=== PATIENT | male | born 1995 | race Hispanic/Latino ===

== ENCOUNTER → 2023-09-13 | Emergency (ER) | payer SELFPAY ==
[~2023-09-13] MED LIST: FAMOTIDINE 20 MG/2 ML VIAL IV ONE; HALOPERIDOL LACT 5 MG/ML INJ ONE; KETOROLAC 30 MG/ML INJ ONE; MORPHINE 4 MG/ML SYR ONE; NA CHLORIDE 0.9% 1,000 ML ONE; NA CHLORIDE 0.9% 50 ML ONE
[2023-09-13 13:48] LABS: Lymphocytes % 8.5 % (15.3-44.8); MCV 85.5 fL (80-100); MPV 8.4 fL (7.6-11.3); Platelets 283 thou/uL (152-406); RBC Red Blood Cell Count 5.14 M/uL (4.33-5.43); Specific Gravity < 1.005 (1.005-1.030); Urine Bacteria None Seen /HPF (<20); Urine Bilirubin NEGATIVE (Negative); Urine Blood Negative (Negative); Urine Clarity Clear (Clear); Urine Color Colorless (Yellow); Urine Glucose NEGATIVE (Negative); Urine Protein NEGATIVE (Negative); Urine RBC <5 /HPF (None Seen); Urine Urobilinogen Normal (Normal)
[2023-09-13 14:02] LABS: Albumin 3.7 g/dL (3.4-5.0); Bilirubin Total 0.5 mg/dL (0.2-1.0); Potassium 3.8 mEq/L (3.5-5.1); Protein, Total 8.1 g/dL (6.4-8.2)
--- NOTE | 2023-09-13 14:54 | RAD REPORT ---
EXAM DESCRIPTION: CT - Abdomen Pelvis W Contrast - 09/13/2023 1:57 pm CLINICAL HISTORY: ABD PAIN COMPARISON: No comparisons TECHNIQUE: Thin cut axial CT imaging of the abdomen and pelvis was performed following intravenous a dministration of 100 mL Isovue 300. Multiplanar reformats were generated and reviewed. All CT scans are performed using dose optimization technique as appropriate and may include automated exposure control or mA/KV adjustment according to patient size. FINDINGS: No suspicious findings in the lung bases. The liver, spleen, adrenal glands, and pancreas show no suspicious findings. Gallbladder and biliary tree are also without suspicious finding. Symmetric renal function is seen with no hydronephrosis or suspicious renal mass. No dilated bowel loops or bowel wall thickening. No free air, free fluid or inflammatory stranding. N o hernia, mass or bulky lymphadenopathy. The urinary bladder is without significant finding. No suspicious bony findings. IMPRESSION: No acute intra-abdominal process.
--- NOTE | 2023-09-13 15:06 | ER ---
Nurse's Notes [facility] Name: Bebeto Wyman Age: 28 yrs Sex: Male : 1995 Arrival Date: 09/13/2023 Time: 11:01 Bed 4 Private MD: Diagnosis: Vomiting Presentation: 09/13 11:22 Chief complaint: Patient states: 1. Sudden onset of N/V. weakness, and numbness to ll1 entire body 30 min MAKE UP GIRL. States he feels very weird and near syncope. 2. L thigh pain off/on for 1 month. Coronavirus screen: Client denies travel out of the [place] in the last 14 days. fatigue, nausea, vomiting. Client presents with at least one sign or symptom that may indicate coronavirus-19. Standard/surgical mask placed on the client. Ebola Screen: Patient denies travel to an Ebola-affected area in the 21 days before illness onset. No acute neurological deficit is noted. Initial Sepsis Screen: Does the patient meet any 2 criteria? No. Patient's initial sepsis screen is negative. Does the patient have a suspected source of infection? No. Patient's initial sepsis screen is negative. Risk Assessment: Do you want to hurt yourself or someone else? Patient reports no desire to harm self or others. Onset of symptoms was September 13, 2023. 11:22 Method Of Arrival: Ambulatory 1 11:22 Acuity: GUNNAR 3 ll1 Triage Assessment: 11:30 General: Appears uncomfortable, ill, Behavior is cooperative, appropriate for age, ll1 anxious. Pain: Denies pain. Neuro: Reports dizziness, numbness a syncopal episode. GI: Reports nausea, vomiting. Stroke Activation: Symptom onset > 6 hours Physician: Stroke Attending; Name: ; Notified At: ; Arrived At: Physician: Chief Stroke Resident; Name: ; Notified At: ; Arrived At: Physician: Stroke Resident; Name: ; Notified At: ; Arrived At: Physician: ED Attending; Name: ; Notified At: ; Arrived At: Physician: ED Resident; Name: ; Notified At: ; Arrived At: Historical: - Allergies: 11:27 No Known Allergies; ll1 - PMHx: 11:30 intussusception; ll1 - PSHx: 11:27 None; ll1 - Immunization history:: Adult Immunizations up to date. - Social history:: Smoking status: Patient denies any tobacco usage or history of. Screenin:44 [facility] ED Fall Risk Assessment (Adult) History of falling in the last 3 months, kc6 including since admission No falls in past 3 months (0 pts) Confusion or Disorientation No (0 pts) Intoxicated or Sedated No (0 pts) Impaired Gait No (0 pts) Mobility Assist Device Used No (0 pt) Altered Elimination No (0 pt) Score/Fall Risk Level 0 - 2 = Low Risk. Abuse screen: Denies threats or abuse. Denies injuries from another. Nutritional screening: No deficits noted. Tuberculosis screening: No symptoms or risk factors identified. Assessment: 12:44 Reassessment: No changes from previously documented assessment. Patient and/or family ap3 updated on plan of care and expected duration. Pain level reassessed. 13:44 Reassessment: Patient appears in no apparent distress at this time. No changes from kc6 previously documented assessment. Patient and/or family updated on plan of care and expected duration. Pain level reassessed. Patient is alert, oriented x 3, equal unlabored respirations, skin warm/dry/pink. 14:44 Reassessment: Patient appears in no apparent distress at this time. No changes from kc6 previously documented assessment. Patient and/or family updated on plan of care and expected duration. Pain level reassessed. Patient is alert, oriented x 3, equal unlabored respirations, skin warm/dry/pink. Vital Signs: 11:26 BP 160 / 103; Pulse 96; Resp 20; Temp 98.2; Pulse Ox 100% ; Weight 108.86 kg; Height 5 ll1 ft. 7 in. ; Pain 0/10; 15:03 BP 106 / 75; Pulse 46; Resp 17 S; Pulse Ox 96% on R/A; kc6 11:26 Body Mass Index 37.59 (108.86 kg, 170.18 cm) ll1 11:26 Pain Scale: Adult ll1 ED Course: 11:02 Patient arrived in ED. rg4 11:22 Arm band placed on. ll1 11:23 Triage completed. ll1 11:28 Romeo Mares MD is Attending Physician. ec2 12:44 Patient placed in an exam room, on a stretcher. ap3 12:44 Patient has correct armband on for positive identification. Bed in low position. Call kc6 light in reach. Side rails up X 1. Adult w/ patient. Client placed on continuous cardiac and pulse oximetry monitoring. NIBP monitoring applied. 12:48 Laure Barrientos, RN is Primary Nurse. ph 13:34 Missed attempt(s): 20 gauge in left antecubital area. Bleeding controlled, band aid ph applied, catheter tip intact. 13:39 Inserted saline lock: 20 gauge in right antecubital area, using aseptic technique. kc6 Blood collected. Patient maintains SpO2 saturation greater than 95% on room air. 13:58 CT Abd/Pelvis - IV Contrast Only In Process Unspecified. EDMS 15:19 No provider procedures requiring assistance completed. IV discontinued, intact, kc6 bleeding controlled, No redness/swelling at site. Pressure dressing applied. Administered Medications: 13:39 Drug: Haloperidol IVP 2.5 mg/50 mL 5 mg IVP once; Place patient on a youth nutritional monitor kc6 Route: IVP; Site: right antecubital; 15:04 Follow up: Response: No adverse reaction; Nausea is decreased; Vomiting decreased kc6 13:39 Drug: NS 0.9% IV 1000 ml IV at 1 bolus Per protocol; 1000 mL bolus Route: IV; Rate: 1 kc6 bolus; Site: right antecubital; 15:04 Follow up: Response: No adverse reaction; IV Status: Completed infusion; IV Intake: kc6 1000ml 13:39 Drug: Famotidine IVP 20 mg IVP once; dilute with 10 mL 0.9% NaCl; give over 2 minutes kc6 Route: IVP; Site: right antecubital; 15:04 Follow up: Response: No adverse reaction kc6 13:39 Drug: TORadol - Ketorolac IVP 15 mg IVP once Route: IVP; Site: right antecubital; kc6 15:04 Follow up: Response: No adverse reaction; Pain is decreased kc6 15:04 Not Given (Patient Refused): morphineor iv 4 mg IVP once over 4 mins kc6 Medication: 15:19 VIS not applicable for this client. kc6 Intake: 15:04 IV: 1000ml; Total: 1000ml. kc6 Outcome: 15:05 Discharge ordered by . ec2 15:19 Discharged to home ambulatory, with significant other, kc6 15:19 Condition: improved 15:19 Discharge instructions given to patient, Instructed on discharge instructions, follow up and referral plans. medication usage, Demonstrated understanding of instructions, follow-up care, medications, Prescriptions given X 1, 15:19 Patient left the ED. kc6 Signatures: Dispatcher [employer] Laure Osman RN RN ramon Xiao, Chanelle rg4 Nay Blil RN RN ap3 Omeag Mclean RN RN ll1 Genna Og RN RN kc6 Romeo Mares MD MD ec2 Corrections: (The following items were deleted from the chart) 11:22 Chief complaint: Patient states: Sudden onset of N/V. weakness, and numbness 30 ll1 min MAKE UP GIRL. ll1 11:32 11: PMHx: None; ll1 ll1 11:33 11:22 Chief complaint: Patient states: Sudden onset of N/V. weakness, and numbness to ll1 entire body 30 min MAKE UP GIRL. States he feels very weird and near syncope. ll1
--- NOTE | 2023-09-13 15:07 | EDPHYS ---
Physician Documentation [facility] Name: Bebeto Wyman Age: 28 yrs Sex: Male : 1995 Arrival Date: 09/13/2023 Time: 11:01 Bed 4 Private MD: ED Physician Romeo Mares HPI: 09/13 11:35 This 28 yrs old Male presents to ER via Ambulatory with complaints of ec2 Weakness, Numbness, Vomiting. 11:35 Patient arrives today for evaluation of nausea and vomiting with associated whole body ec2 numbness. Patient reports that he start experiencing symptoms approximately 1 hour ago. Patient reports that he is unable to keep anything down. He reports he is having nausea and vomiting. Patient reports no significant pain. Patient reports no difficulty breathing, no cough and cold symptoms, no sick contacts. Patient also reports that he has some nondescript leg pain is an ongoing for 1 month.. Historical: - Allergies: 11:27 No Known Allergies; ll1 - PMHx: 11:30 intussusception; ll1 - PSHx: 11:27 None; ll1 - Immunization history:: Adult Immunizations up to date. - Social history:: Smoking status: Patient denies any tobacco usage or history of. ROS: 11:35 Constitutional: as per hpi ec2 Exam: 11:35 Constitutional: GEN: NAD Head: atraumatic Eyes: EOMI Ears: External ears are ec2 normal. CV: regular rate LUNGS: no respiratory distress ABD: non-distended, soft, nontender, not guarding, not rigid SKIN: no evidence of rashes MSK: no evidence of trauma, bilateral lower extremities without evidence of trauma or swelling or erythema NEURO: moves all extremities equally Vital Signs: 11:26 BP 160 / 103; Pulse 96; Resp 20; Temp 98.2; Pulse Ox 100% ; Weight 108.86 kg; Height 5 ll1 ft. 7 in. ; Pain 0/10; 15:03 BP 106 / 75; Pulse 46; Resp 17 S; Pulse Ox 96% on R/A; kc6 11:26 Body Mass Index 37.59 (108.86 kg, 170.18 cm) ll1 11:26 Pain Scale: Adult ll1 MDM: 11:28 Patient medically screened. ec2 11:35 Data reviewed: vital signs. ED course: Patient arrives today due to concern for nausea ec2 and vomiting. Examination remarkable for well-appearing nontoxic individual is otherwise in no acute distress with a relatively reassuring abdominal examination. Will obtain lab work, CT imaging, viral swabs, treat pain symptoms and reassess the patient. Currently considering gastroenteritis, low suspicion for intra-abdominal infection or abscess.. 14:46 ED course: CBC shows slight leukocytosis at 12.1. Metabolic profile with appropriate ec2 electrolytes, diminished renal function with a GFR of 84, urine is noninfectious appearing. Lipase within normal ranges. Patient does meet SIRS criteria with a white count as well as the documented heart rate, however I have no definitive source of infection to warrant antibiotics at this time and accordingly will defer antimicrobial management. . 14:56 ED course: CT scan shows no acute intra-abdominal process. . ec2 15:04 ED course: On reassessment patient is well-appearing and in no acute distress, patient ec2 with marked improvement in his symptoms, denies any active symptoms, no significant medical problems, ultimately suspect possible gastroenteritis, low suspicion for intra-abdominal infection given reassuring imaging, will suspicion for ACS given the patient's otherwise lack of medical problems. Will discharge home, return precautions given.. 12 11:35 Order name: CBC with Diff ec2 09/13 11:35 Order name: CMP; Complete Time: 14:45 ec2 09/13 11:35 Order name: Lipase; Complete Time: 14:45 ec2 09/13 11:35 Order name: UAM; Complete Time: 14:45 ec2 09/13 11:35 Order name: CT Abd/Pelvis - IV Contrast Only; Complete Time: 14:56 ec2 09/13 11:35 Order name: IV Saline Lock; Complete Time: 13:39 ec2 09/13 11:35 Order name: Labs collected and sent; Complete Time: 13:39 ec2 Administered Medications: 13:39 Drug: Haloperidol IVP 2.5 mg/50 mL 5 mg IVP once; Place patient on a residential monitor kc6 Route: IVP; Site: right antecubital; 15:04 Follow up: Response: No adverse reaction; Nausea is decreased; Vomiting decreased kc6 13:39 Drug: NS 0.9% IV 1000 ml IV at 1 bolus Per protocol; 1000 mL bolus Route: IV; Rate: 1 kc6 bolus; Site: right antecubital; 15:04 Follow up: Response: No adverse reaction; IV Status: Completed infusion; IV Intake: kc6 1000ml 13:39 Drug: Famotidine IVP 20 mg IVP once; dilute with 10 mL 0.9% NaCl; give over 2 minutes kc6 Route: IVP; Site: right antecubital; 15:04 Follow up: Response: No adverse reaction kc6 13:39 Drug: TORadol - Ketorolac IVP 15 mg IVP once Route: IVP; Site: right antecubital; kc6 15:04 Follow up: Response: No adverse reaction; Pain is decreased kc6 15:04 Not Given (Patient Refused): morphineor iv 4 mg IVP once over 4 mins kc6 Disposition Summary: 09/13/23 15:05 Discharge Ordered Notes: Location: Home ec2 Condition: Stable ec2 Diagnosis - Vomiting ec2 Followup: ec2 - With: Private Physician - When: - Reason: Recheck today's complaints Discharge Instructions: - Discharge Summary Sheet ec2 - Viral Gastroenteritis, Adult ec2 Forms: - Medication Reconciliation Form ec2 - Thank You Letter ec2 - Antibiotic Education ec2 - Prescription Opioid Use ec2 - Patient Portal Instructions ec2 - Leadership Thank You Letter ec2 Prescriptions: - Compazine 10 mg Oral Tablet - take 1 tablet ORAL route every 8 hours As needed; 20 tablet; Refills: 0, ec2 Product Selection Permitted Signatures: Dispatcher [employer] Omega Gomes RN RN ll1 Genna Og RN RN kc6 Romeo Mares MD MD ec2 Corrections: (The following items were deleted from the chart) 11:32 11:27 PMHx: None; ll1 ll1 15:04 11:35 Patient arrives today for evaluation of nausea and vomiting with associated whole ec2 body numbness. Patient reports that he start experiencing symptoms approximately 1 hour ago. Patient reports that he is unable to keep anything down. Patient reports no significant pain. Patient reports no difficulty breathing, no cough and cold symptoms, no sick contacts. Patient also reports that he has some nondescript leg pain is an ongoing for 1 month.. ec2
[2023-09-13 15:20] LABS: Blood Morphology Comment NOT SEEN (NOT SEEN); Platelet Estimate ADEQ; White Blood Cell Scan OK (OK)
[2023-09-13 17:05] VITALS: TEMP 98.2
[2023-09-13 17:18] VITALS: BP 106/75; O2SAT 96
== END ==
LOC: ER 11:01
DX: R11.10 Vomiting, unspecified (principal); R20.0 Anesthesia of skin
CPT/HCPCS: 36415; 74177; 80053; 81001; 83690; 85025; 96361; 96374; 96375; 99285; J1630; J7030; Q9967

== ENCOUNTER 2024-10-14 19:34 | Emergency (ER) | payer SELFPAY ==
--- OUTSIDE RECORDS SUMMARY | 2024-10-14 19:38 | XMS REPORT | Continuity of Care Document ---
Author Name Unknown Address [address] [facility] [address] [facility] [place] [address] [facility] [address] [facility] [address] [facility] [place] [address] Care Team Providers Care Dowel Pin Man Name Role Phone Pcp, Patient Does Not Have A Primary Care Physic kaern TESSIE FOX Attending Clinician Unavailable TESSIE FOX Attending Clinician Unavailable Tessie Fox MD Attending Clinician AYDEN FINLEY Attending Clinician Unavailable AYDEN FINLEY Attending Clinician Unavailable OTILIO WRIGHT Attending Clinician UnaGAYLE aRm Attending Clinician Unavailable BE FUENTES Attending Clinician Unavailable Alexander Mcwilliams Attending Clinician Alexander CARROLL Attending Clinician Unavailable GC_CPC_Prashant Attending Clinician Unavail able ROLO CHRISTINA Attending Clinician Unavailable GAYLE LUIS Admitting Clinician Unavailable Alexander CARROLL Admitting Clinician Unavailable BRANDANCPC_WalkInSchedamy Admitting Clinician Unavail able Payers Payer Name Policy Type Policy Number Effective Date Expirati on Date Source Problems Condition Name Condition Details Condition Category Status Onset Date Resolution Date Last Treatment Date Treating Clinician Comments Source Obesity (BMI 30-39.9) Obesity (BMI 30-39.9) Disease Active 03-15 00:00: 00 [facility] Allergies, Adverse Reactions, Alerts Allergy Name Allergy Type Status Severity Reaction(s) Onset Date Inactive Date Treating Clinician Comments Source NO KNOWN ALLERGIE S Drug Class Active [facility] Social History Social Habit Start Date Stop Date Quantity Comments [facility] 1995 [facility] 1995 00:00:00 [facility] Smoking Status Start Date Stop Date Source Tobacco smoking consumption unknown [facility] Former Smoker [facility] Medications Ordered Medication Name Filled Medication Name Start Date Stop Date Current Medication? Ordering Clinician Indication Dosage Frequency Signature (SIG) Comments Components Source ondansetron (ZOFRAN (PF)) injection 4 mg 2023-09 03:15: 00 07-20 02:41 :00 No 4mg 4 mg, Slow IV Push, ONCE, 1 dose, On 07/19/24 at 2215, HERRERA [facility] diphenhydrA MINE:lidoca ine 2% viscous:maa lox 1:1:1 (FIRST-MOUT HWASH BLM) oral suspension 15 mL 2023-09 02:15: 00 07-20 02:41 :00 No 15mL 15 mL, Oral, ONCE, 1 dose, On 07/19/24 at 2115, HERRERA [facility] sucralfate 1 gram tablet 2023-09 00:00: 00 Yes [id number] 1g Take 1 tablet by mouth before meals and at bedtime. [facility] pantoprazol e 40 mg EC tablet 2023-09 00:00: 00 Yes [id number] 40mg Take 1 tablet by mouth in the morning. [facility] ondansetron 4 mg disintegrat ing tablet 2023-09 00:00: 00 Yes [id number] 4mg Take 1 tablet by mouth every 4 (four) hours as needed for Nausea and Vomiting (N/V). [facility] NaCl 0.9% (NS) bolus infusion 1,000 mL 10-24 23:45: 00 10-25 00:26 :00 No 1000mL at 999 mL/hr, 1,000 mL, IV Infusion, ONCE, 1 dose, On 10/24/23 at 1745, STAT [facility] diphenhydrA MINE (BENADRYL) injection 25 mg 10-24 23:45: 00 10-24 22:51 :00 No 25mg 25 mg, Slow IV Push, ONCE, 1 dose, On Sun10/24/23 at 1745, STAT [facility] metoclopram christie HCl (REGLAN) injection 10 mg 10-24 23:45: 00 10-24 22:47 :00 No 10mg 10 mg, Slow IV Push, ONCE, 1 dose, On Sun10/24/23 at 1745, HERRERA [facility] ketorolac (TORADOL) injection 15 mg 10-24 23:45: 00 10-24 22:51 :00 No 15mg 15 mg, Slow IV Push, ONCE, 1 dose, On Sun10/24/23 at 1745, [facility] cyclobenzap rine 5 mg tablet 03-15 00:00: 00 Yes 5mg Take 1 tablet by mouth 3 (three) times daily. [facility] Vital Signs Vital Name Observation Time Observation Value Comments S ource Systolic blood pressure 2024-07-20 04:00:00 123 mm[Hg] [facility] Diastolic blood pressure 2024-07-20 04:00:00 89 mm[Hg] [facility] Heart rate 2024-07-20 04:00:00 58 /min [facility] Body temperature 2024-07-20 04:00:00 37.11 Chasity [facility] Oxygen saturation in Arterial blood by Pulse oximetry 2024-07-20 04:00:00 92 /min [facility] Respiratory rate 2024-07-20 03:00:00 14 /min [facility] Body height 2024-07-20 01:44:00 170.2 cm [facility] Body weight 2024-07-20 01:44:00 111.948 kg [facility] BMI 2024-07-20 01:44:00 38.65 kg/m2 [facility] BP Diastolic 2024-06-03 00:00:00 98 mm[Hg] [facility] BMI (Body Mass Index) 2024-06-03 00:00:00 38.7 kg/m2 [facility] Body Weight 2024-06-03 00:00:00 3958 [oz_av] [facility] Height 2024-06-03 00:00:00 67 [in_i] [facility] BP Systolic 2024-06-03 00:00:00 123 mm[Hg] [facility] Systolic blood pressure 2024-03-11 22:10:00 125 mm[Hg] [facility] Diastolic blood pressure 2024-03-11 22:10:00 86 mm[Hg] [facility] Heart rate 2024-03-11 22:10:00 74 /min [facility] Body temperature 2024-03-11 22:10:00 36.61 Chasity [facility] Respiratory rate 2024-03-11 22:10:00 16 /min [facility] Oxygen saturation in Arterial blood by Pulse oximetry 2024-03-11 22:10:00 95 /min [facility] Body height 2024-03-11 18:52:00 170.2 cm [facility] Body weight 2024-03-11 18:52:00 108.863 kg [facility] BMI 2024-03-11 18:52:00 37.59 kg/m2 [facility] BP Diastolic 2024-02-06 00:00:00 85 mm[Hg] [facility] BMI (Body Mass Index) 2024-02-06 00:00:00 37.5 kg/m2 [facility] Body Weight 2024-02-06 00:00:00 3830.4 [oz_av] [facility] BP Systolic 2024-02-06 00:00:00 124 mm[Hg] [facility] Height 2024-02-06 00:00:00 67 [in_i] [facility] BP Diastolic 2023-11-13 00:00:00 87 mm[Hg] [facility] Height 2023-11-13 00:00:00 67 [in_i] [facility] BP Systolic 2023-11-13 00:00:00 131 mm[Hg] [facility] Body Weight 2023-11-13 00:00:00 3792 [oz_av] [facility] BMI (Body Mass Index) 2023-11-13 00:00:00 37.1 kg/m2 [facility] Systolic blood pressure 2023-10-24 21:56:00 150 mm[Hg] [facility] Diastolic blood pressure 2023-10-24 21:56:00 98 mm[Hg] [facility] Heart rate 2023-10-24 21:56:00 80 /min [facility] Body temperature 2023-10-24 21:56:00 36.61 Chasity [facility] Respiratory rate 2023-10-24 21:56:00 16 /min [facility] Body height 2023-10-24 21:56:00 170.2 cm [facility] Body weight 2023-10-24 21:56:00 108.863 kg [facility] BMI 2023-10-24 21:56:00 37.59 kg/m2 [facility] Oxygen saturation in Arterial blood by Pulse oximetry 2023-10-24 21:56:00 99 /min [facility] BP Diastolic 2023-01-15 00:00:00 86 mm[Hg] [facility] Height 2023-01-15 00:00:00 67 [in_i] [facility] BMI (Body Mass Index) 2023-01-15 00:00:00 37.8 kg/m2 [facility] BP Systolic 2023-01-15 00:00:00 128 mm[Hg] [facility] Body Weight 2023-01-15 00:00:00 3860 [oz_av] [facility] Procedures Procedure Date / Time Performed Performing Clinicia n Source URINALYSIS 2024-07-20 02:43:00 Tessie Fox [facility] LIPASE 2024-07-20 02:40:00 Tessie Fox [facility] COMP. METABOLIC PANEL ([id number]) 2024-07-20 02:40:00 Tessie Fox [facility] CBC WITH DIFF 2024-07-20 02:40:00 Tessie Fox [facility] COMP. METABOLIC PANEL ([id number]) 2024-03-11 20:43:00 Gayle Luis [facility] CBC WITH DIFF 2024-03-11 20:43:00 Gayle Luis [facility] CT HEAD WO CONTRAST 2024-03-11 19:53:18 Sonja Luis [facility] URINALYSIS 2023-10-24 22:57:00 Alexander Carroll [facility] COMP. METABOLIC PANEL ([id number]) 2023-10-24 22:52:00 Alexander Carroll [facility] CBC WITH DIFF 2023-10-24 22:52:00 Alexander Carroll [facility] CT HEAD WO CONTRAST 2023-10-24 22:45:00 Alexander Carroll [facility] CT SCAN ABDOMEN WITH CONTRAST 2023-01-15 00:00:00 [facility] Encounters Start Date/Time End Date/Time Encounter Type Admission Type Attending [facility] Care Department Encounter ID Source 2024-07-19 20:46:00 2024-07-19 23:02:00 Emergency X TESSIE FOX [facility] ERT [id number] [facility] 2024-07-19 20:46:00 2024-07-19 23:02:00 Emergency Tessie Fox [facility] [id number] [facility] 2024-06-26 15:30:00 2024-06-26 15:30:00 Outpatient AYDEN TIDWELL, AYDEN [facility] [id number] [facility] 2024-06-03 00:00:00 2024-06-03 00:00:00 Estuardo Madrid, PLAYER SERVICES REPRESENTATIVE: [address] [phone] , Ph. [facility] - GC_CPC_Need [facility] Office [id number] [facility] 2024-03-20 15:00:00 2024-03-20 15:00:00 Outpatient OTILIO WRIGHT [id number] Kaya Charles 2024-03-11 13:54:00 2024-03-11 17:13:00 Emergency GAYLE ORTIZ [facility] ERT [id number] [facility] 2024-03-11 13:54:00 2024-03-11 17:13:00 Emergency Gayle Luis [facility] [id number] [facility] 2024-02-06 00:00:00 2024-02-06 00:00:00 Estuardo Madrid, PLAYER SERVICES REPRESENTATIVE: [address] [address] , Ph. [facility] - GC_CPC_Need carlene Office [id number] [facility] 2023-12-26 13:00:00 2023-12-26 13:00:00 Outpatient BE FUENTES [facility] [id number] [facility] 2023-11-13 00:00:00 2023-11-13 00:00:00 Estuardo Madrid, PLAYER SERVICES REPRESENTATIVE: [address] [address] , Ph. [facility] - GC_CPC_Need carlene Office [id number] [facility] 2023-10-24 15:57:00 2023-10-24 18:30:00 Emergency Alexander Carroll [facility] [id number] [facility] 2023-10-24 15:57:00 2023-10-24 18:30:00 Emergency X Alexander CARROLL [facility] ERT [id number] [facility] 2023-02-20 00:00:00 2023-02-20 00:00:00 Outpatient [facility]_Walk InSchedul [facility] [id number] [facility] 2023-01-15 00:00:00 2023-01-15 00:00:00 [facility] [id number] [facility] 2023-01-15 00:00:00 2023-01-15 00:00:00 Tavo Mendieta MD: [address] [address] , Ph. [facility] - GC_CPC_Need carlene Office [id number] [facility] 2020-08-30 18:00:00 2020-08-30 18:00:00 Outpatient ROLO CARLSON [facility] [id number] [facility] Results Test Description Test Time Test Comments Results Result Co mments Source [facility][id number][facility]20[facility]-20 03:28:05* Test Item Value Reference Range Interpretation Comme nts NA (test code = 0085078849) 137 mmol/L 135-145 K (test code = 6266173992) 3.7 mmol/L 3.5-5.0 CL (test code = 1817490936) 103 mmol/L 98-108 CO2 TOTAL (test code = 0320435784) 26 mmol/L 23-31 AGAP (test code = 6781151620) 8 2-16 BUN (test code = 9659276574) 18 mg/dL 7-23 GLUCOSE (test code = 4291082762) 107 mg/dL 70-110 CREATININE (test code = 2160-0) 1.13 mg/dL 0.60-1.25 TOTAL BILI (test code = 8150940446) 0.5 mg/dL 0.1-1.1 CALCIUM (test code = 3730903903) 9.4 mg/dL 8.6-10.6 T PROTEIN (test code = 6467242508) 8.0 g/dL 6.3-8.2 ALBUMIN (test code = 9022277595) 4.6 g/dL 3.5-5.0 ALK PHOS (test code = 1316997059) 92 U/L 34-122 ALTv (test code = 1742-6) 104 U/L 5-50 H AST(SGOT) (test code = 9972941885) 61 U/L 13-40 H eGFR (test code = 01453-9) 89.1 mL/min/1.73m2 Lab Interpretation (test cod e = 28444-4) Abnormal [facility] WITH [id number] 03:24:04* Test Item Value Reference Range Interpretation Comme nts WBC (test code = 6690-2) 7.72 4.20-10.70 RBC (test code = 789-8) 5.36 4.26-5.52 HGB (test code = 718-7) 16.2 g/dL 12.2-16.4 HCT (test code = 4544-3) 45.5 % 38.4-49.3 MCV (test code = 787-2) 84.9 fL 81.7-95.6 MCH (test code = 785-6) 30.2 pg 26.1-32.7 MCHC (test code = 786-4) 35.6 g/dL 31.2-35.0 H RDW-SD (test code = 85473-1) 34.8 fL 38.5-51.6 L RDW-CV (test code = 788-0) 11.5 % 12.1-15.4 L PLT (test code = 777-3) 285 150-328 MPV (test code = 10565-2) 10.2 fL 9.8-13.0 NRBC/100 WBC (test code = 3766193168) 0.0 0.0-10.0 NRBC x10^3 (test code = 2982496005) See_Comment [Automated messa ge] The system which generated this result transmitted reference range: 10*3/?L. The reference range was not used to interpret this result as normal/abnormal. GRAN MAT (NEUT) % (test code = 770-8) 64.9 % IMM GRAN % (test code = 4196956805) 0.50 % LYMPH % (test code = 736-9) 22.4 % MONO % (test code = 5905-5) 10.0 % EOS % (test code = 713-8) 1.6 % BASO % (test code = 706-2) 0.6 % GRAN MAT x10^3(ANC) (test code = 9210717933) 5.01 10*3/uL 1.99-6.95 IMM GRAN x10^3 (test code = 9455586903) 0.04 10*3/uL 0.00-0.06 LYMPH x10^3 (test code = 731-0) 1.73 10*3/uL 1.09-3.23 MONO x10^3 (test code = 742-7) 0.77 10*3/uL 0.36-1.02 EOS x10^3 (test code = 711-2) 0.12 10*3/uL 0.06-0.53 BASO x10^3 (test code = 704-7) 0.05 10*3/uL 0.01-0.09 Lab Interpretation (test code = 80016-6) [facility]20053[facility]2024-[facility]-11 21:49:32* Test Item Value Reference Range Interpretation Comme nts NA (test code = 2785163835) 140 mmol/L 135-145 K (test code = 7415848351) 4.2 mmol/L 3.5-5.0 CL (test code = 2357738287) 103 mmol/L 98-108 CO2 TOTAL (test code = 9239358643) 29 mmol/L 23-31 AGAP (test code = 8588367249) 8 2-16 BUN (test code = 9061337872) 22 mg/dL 7-23 GLUCOSE (test code = 5443387025) 83 mg/dL 70-110 CREATININE (test code = 2160-0) 1.00 mg/dL 0.60-1.25 TOTAL BILI (test code = 0131680310) 0.8 mg/dL 0.1-1.1 CALCIUM (test code = 0355828979) 9.4 mg/dL 8.6-10.6 T PROTEIN (test code = 2039079937) 8.5 g/dL 6.3-8.2 H ALBUMIN (test code = 8683478831) 4.8 g/dL 3.5-5.0 ALK PHOS (test code = 6879527229) 90 U/L 34-122 ALTv (test code = 1742-6) 77 U/L 5-50 H AST(SGOT) (test code = 1243207927) 42 U/L 13-40 H eGFR (test code = 28717-9) 103.8 mL/min/1.73m2 CKD-EPI eGFR (2020). Assuming creatinine has been stable day-to-day for at least three months, the eGFR indicates Category G1 (>= 90 mL/min/1.73 m2) Lab Interpretation (test code = 46946-3) Abnormal [facility] WITH [id number] 21:29:10* Test Item Value Reference Range Interpretation Comme nts WBC (test code = 6690-2) 8.21 4.20-10.70 RBC (test code = 789-8) 5.52 4.26-5.52 HGB (test code = 718-7) 16.3 g/dL 12.2-16.4 HCT (test code = 4544-3) 48.0 % 38.4-49.3 MCV (test code = 787-2) 87.0 fL 81.7-95.6 MCH (test code = 785-6) 29.5 pg 26.1-32.7 MCHC (test code = 786-4) 34.0 g/dL 31.2-35.0 RDW-SD (test code = 65298-4) 38.0 fL 38.5-51.6 L RDW-CV (test code = 788-0) 11.9 % 12.1-15.4 L PLT (test code = 777-3) 323 150-328 MPV (test code = 66718-6) 10.7 fL 9.8-13.0 NRBC/100 WBC (test code = 3253271489) 0.0 0.0-10.0 NRBC x10^3 (test code = 7542973864) See_Comment [Automated [employer] ge] The system which generated this result transmitted reference range: 10*3/?L. The reference range was not used to interpret this result as normal/abnormal. GRAN MAT (NEUT) % (test code = 770-8) 60.5 % IMM GRAN % (test code = 6273141101) 0.40 % LYMPH % (test code = 736-9) 28.1 % MONO % (test code = 5905-5) 8.8 % EOS % (test code = 713-8) 1.7 % BASO % (test code = 706-2) 0.5 % GRAN MAT x10^3(ANC) (test code = 0771556961) 4.97 10*3/uL 1.99-6.95 IMM GRAN x10^3 (test code = 0837674174) 0.03 10*3/uL 0.00-0.06 LYMPH x10^3 (test code = 731-0) 2.31 10*3/uL 1.09-3.23 MONO x10^3 (test code = 742-7) 0.72 10*3/uL 0.36-1.02 EOS x10^3 (test code = 711-2) 0.14 10*3/uL 0.06-0.53 BASO x10^3 (test code = 704-7) 0.04 10*3/uL 0.01-0.09 Lab Interpretation (test code = 48319-1) [id number] 20:01:35EXAM: CT HEAD WO CONTRAST HISTORY: 28 years-old Male; Provided indication: Headache, chronic, newfeatures or increased frequency. TECHNIQUE: Axial CT of the head was performed and reconstructed at 5 mmintervals. Coronal and sagittal reformatted images were generated. COMPARISON: 10/24/2023. FINDINGS: The ventricles and cerebral sulci are normal in caliber and configuration.No midline shift or patho logical extra-axial fluid collection is present.The basal cisterns are unremarkable. No acute intracranial hemorrhage or significant mass effect is visualized.No parenchymal attenuation abnormality is seen. The samayoa-white matterdifferentiation is preserved. The mastoid air cells and paranasal air si nuses are clear. The calvariumand central skull base are unremarkable.[facility]. Metabolic Panel (51828)2023-10-24 23:36:13* Test Item Value Reference Range Interpretation Comme nts NA (test code = 0274184674) 140 mmol/L 135-145 K (test code = 3357296899) 3.8 mmol/L 3.5-5.0 CL (test code = 8440255707) 105 mmol/L 98-108 CO2 TOTAL (test code = 4075048307) 25 mmol/L 23-31 AGAP (test code = 4492199140) 10 2-16 BUN (test code = 1679622249) 17 mg/dL 7-23 GLUCOSE (test code = 2447497492) 76 mg/dL 70-110 CREATININE (test code = 5519016216) 1.13 mg/dL 0.60-1.25 TOTAL BILI (test code = 8402575562) 0.8 mg/dL 0.1-1.1 CALCIUM (test code = 7969558008) 9.8 mg/dL 8.6-10.6 T PROTEIN (test code = 4216734705) 8.7 g/dL 6.3-8.2 H ALBUMIN (test code = 7983791899) 4.8 g/dL 3.5-5.0 ALK PHOS (test code = 8739451996) 82 U/L 34-122 ALTv (test code = 1742-6) 85 U/L 5-50 H AST(SGOT) (test code = 4944702200) 49 U/L 13-40 H eGFR (test code = 02604-7) 89.7 mL/min/1.73m2 Lab Interpretation (test cod e = 83923-7) Abnormal [facility] with [id number] 23:20:28* Test Item Value Reference Range Interpretation Comme nts WBC (test code = 6690-2) 8.45 4.20-10.70 RBC (test code = 789-8) 5.37 4.26-5.52 HGB (test code = 718-7) 16.5 g/dL 12.2-16.4 H HCT (test code = 4544-3) 45.4 % 38.4-49.3 MCV (test code = 787-2) 84.5 fL 81.7-95.6 MCH (test code = 785-6) 30.7 pg 26.1-32.7 MCHC (test code = 786-4) 36.3 g/dL 31.2-35.0 H RDW-SD (test code = 44147-1) 35.9 fL 38.5-51.6 L RDW-CV (test code = 788-0) 12.1 % 12.1-15.4 PLT (test code = 777-3) 291 150-328 MPV (test code = 42328-5) 10.1 fL 9.8-13.0 NRBC/100 WBC (test code = 6717680292) 0.0 0.0-10.0 NRBC x10^3 (test code = 8893856730) See_Comment [Automated [employer] ge] The system which generated this result transmitted reference range: 10*3/?L. The reference range was not used to interpret this result as normal/abnormal. GRAN MAT (NEUT) % (test code = 770-8) 65.3 % IMM GRAN % (test code = 9550213741) 0.40 % LYMPH % (test code = 736-9) 24.5 % MONO % (test code = 5905-5) 8.5 % EOS % (test code = 713-8) 0.7 % BASO % (test code = 706-2) 0.6 % GRAN MAT x10^3(ANC) (test code = 8312160692) 5.52 10*3/uL 1.99-6.95 IMM GRAN x10^3 (test code = 1392465941) 0.03 10*3/uL 0.00-0.06 LYMPH x10^3 (test code = 731-0) 2.07 10*3/uL 1.09-3.23 MONO x10^3 (test code = 742-7) 0.72 10*3/uL 0.36-1.02 EOS x10^3 (test code = 711-2) 0.06 10*3/uL 0.06-0.53 BASO x10^3 (test code = 704-7) 0.05 10*3/uL 0.01-0.09 Lab Interpretation (test code = 28494-1) [facility] [id number] 22:51:35CT HEAD WO CONTRAST HISTORY: 28 years-old Male; Headache, chronic, new features or increasedfrequency WILEY left side x 8 days COMPARISON: None. TECHNIQUE: Axial CT of the head was performed. Coronal and sagittalreformatted images were generated. FINDINGS: The ventricles and cerebral sulci are normal in caliber and configuration.No hydrocephalus, midline shift or pathological extra-axial fluidcollection is present. The basal cisterns are unremarkable. There is no acute intracranial hemorrhage or significant mass effect. Noparenchymal attenuation abnormality is seen. The samayoa-white matterdifferentiation is preserved. The mastoid air cells and paranasal air sinuses are clear. The calvariumand central skull base are unremarkable.[facility]
[2024-10-14] MEDS ORDERED: dexAMETHasone 10 MG/ML VIAL ONE (19:53)
[2024-10-14] MEDS ORDERED: KETOROLAC 30 MG/ML INJ ONE (19:53)
--- NOTE | 2024-10-14 20:27 | RAD REPORT ---
EXAMINATION: LUMBAR SPINE 3 VIEWS CLINICAL INDICATION: Male, 29 years old. PAIN TECHNIQUE: AP, lateral, focused lateral lumbosacral views of the lumbar spine were obtained. [id number]. COMPARISON: No prior exam. FINDINGS: For purposes of this dictation, it is assumed that there are 5 lumbar type vertebral bodies. ALIGNMENT: Minimal levoconvex curvature. BONES: Vertebral bodies are normal in height. No aggressive osseous lesions. DISCS: Disc heights are maintained. SOFT TISSUE: No soft tissue abnormalities. IMPRESSION: No acute lumbar spine abnormality.
--- NOTE | 2024-10-14 20:30 | ER ---
Nurse's Notes [facility] Name: Bebeto Wyamn Age: 29 yrs Sex: Male : 1995 Arrival Date: 10/14/2024 Time: 19:34 Bed 10 Private MD: Diagnosis: Sciatica, left side Presentation: 10/14 19:41 Chief complaint: Patient states: Left leg pain for the past 2 weeks. Getting worse. It jb4 is a sharp shooting pain. Coronavirus screen: At this time, the client does not indicate any symptoms associated with coronavirus-19. Ebola Screen: No symptoms or risks identified at this time. Initial Sepsis Screen: Does the patient meet any 2 criteria? No. Patient's initial sepsis screen is negative. Does the patient have a suspected source of infection? No. Patient's initial sepsis screen is negative. Risk Assessment: Do you want to hurt yourself or someone else? Patient reports no desire to harm self or others. Onset of symptoms was October 14, 2024. Transition of care: patient was not received from another setting of care. 19:41 Method Of Arrival: Ambulatory jb4 19:41 Acuity: GUNNAR 4 jb4 Triage Assessment: 19:44 General: Appears in no apparent distress. comfortable, Behavior is calm, cooperative, jb4 appropriate for age. Pain: Complains of pain in left quadriceps Pain does not radiate. Pain currently is 7 out of 10 on a pain scale. Quality of pain is described as shooting, Pain began 2 weeks ago. Neuro: Level of Consciousness is awake, alert, obeys commands, Oriented to person, place, time, situation. Cardiovascular: Patient's skin is warm and dry. Respiratory: Airway is patent Respiratory effort is even, unlabored, Respiratory pattern is regular, symmetrical. Derm: Skin is intact, Skin is pink, warm \T\ dry. Musculoskeletal: Circulation, motion, and sensation intact. Range of motion: intact in all extremities. Historical: - Allergies: 19:44 No Known Allergies; jb4 - PMHx: 19:44 intussusception; jb4 - PSHx: 19:44 None; jb4 - Immunization history:: Adult Immunizations up to date. - Infectious Disease History:: Denies. - Social history:: Smoking status: Reported history of juuling and/or vaping. Patient uses alcohol, occasionally. Screenin:37 [facility] ED Fall Risk Assessment (Adult) History of falling in the last 3 months, bm8 including since admission No falls in past 3 months (0 pts) Confusion or Disorientation No (0 pts) Intoxicated or Sedated No (0 pts) Impaired Gait No (0 pts) Mobility Assist Device Used No (0 pt) Altered Elimination No (0 pt) Score/Fall Risk Level 0 - 2 = Low Risk Oriented to surroundings, Maintained a safe environment, Educated pt \T\ family on fall prevention, incl call for assistance when getting out of bed, Assessed \T\ reinforced patient's understanding of fall precautions, Hourly rounding (assess needs \T\ fall precautionary measures) done, Used ambulatory aids as needed (educated on \T\ assisted with), Used gait belt as appropriate. Abuse screen: Denies threats or abuse. Nutritional screening: No deficits noted. Tuberculosis screening: No symptoms or risk factors identified. Assessment: 20:37 Reassessment: Patient appears in no apparent distress at this time. Patient and/or bm8 family updated on plan of care and expected duration. Pain level reassessed. Patient is alert, oriented x 3, equal unlabored respirations, skin warm/dry/pink. Patient states feeling better. Patient states symptoms have improved. Pain: Denies pain. Neuro: No deficits noted. Level of Consciousness is awake, alert, obeys commands, Oriented to person, place, time, situation, Appropriate for age. Cardiovascular: No deficits noted. Denies chest pain, Capillary refill is > 3 seconds in bilateral fingers Patient's skin is warm and dry. Respiratory: No deficits noted. GI: No deficits noted. : No deficits noted. EENT: No deficits noted. Derm: No deficits noted. Musculoskeletal: No deficits noted. Vital Signs: 19:41 BP 148 / 93; Pulse 95; Resp 16; Pulse Ox 98% on R/A; Weight 108.86 kg (R); Height 5 ft. jb4 8 in. (R); Pain 7/10; 20:37 BP 145 / 90; Pulse 90; Resp 17; Temp 98; Pulse Ox 98% ; Pain 0/10; bm8 19:41 Body Mass Index 36.49 (108.86 kg, 172.72 cm) jb4 19:41 Pain Scale: Adult jb4 20:37 Pain Scale: Adult bm8 Fatemeh Coma Score: 20:37 Eye Response: spontaneous(4). Motor Response: obeys commands(6). Verbal Response: bm8 oriented(5). Total: 15. ED Course: 19:36 Patient arrived in ED. mr 19:40 Beto Dumont, [facility] 19:40 Romeo Mares MD is Attending Physician. dr5 19:44 Triage completed. jb4 19:44 Arm band placed on right wrist. jb4 20:14 Lumbar Spine 3 Views In Process Unspecified. EDMS 20:37 Gentry Mcleod, RN is Primary Nurse. bm8 20:37 Patient has correct armband on for positive identification. Placed in gown. Bed in low bm8 position. Call light in reach. Patient has correct armband on for positive identification. Provided Education on: post er care. 20:37 No provider procedures requiring assistance completed. Patient did not have IV access bm8 during this emergency room visit. Administered Medications: 20:02 Drug: Dexamethasone IM 10 mg IM once Route: IM; Site: left deltoid; jb4 20:37 Follow up: Response: No adverse reaction bm8 20:02 Drug: Ketorolac IM 30 mg IM once Route: IM; Site: right deltoid; jb4 20:37 Follow up: Response: No adverse reaction bm8 Medication: 20:37 VIS not applicable for this client. bm8 Outcome: 20:29 Discharge ordered by MD. dr5 20:37 Discharged to home ambulatory, bm8 20:37 Condition: stable 20:37 Discharge instructions given to patient, family, Instructed on discharge instructions, follow up and referral plans. safety practices, Demonstrated understanding of instructions, follow-up care, medications, Prescriptions given X 3, 20:41 Patient left the ED. bm8 Signatures: Dispatcher [employer] EDNE SamsNathalie sosa, Reg Mauro Lopez, KAREN RN jb4 Gentry Mcleod, KAREN RN bm8 Beto Dumont FNP-C PROCUREMENT COST COORDINATOR-Cdr5
--- NOTE | 2024-10-14 20:30 | EDPHYS ---
Physician Documentation [facility] Name: Bebeto Wyman Age: 29 yrs Sex: Male : 1995 Arrival Date: 10/14/2024 Time: 19:34 Bed 10 Private MD: ED Physician Romeo Mares HPI: 10/14 20:12 This 29 yrs old Male presents to ER via Ambulatory with complaints of Left, dr5 Leg Pain. 20:12 Onset: The symptoms/episode began/occurred 2 week(s) ago. Associated signs and dr5 symptoms: Pertinent negatives: chest pain, congestion, constipation, cough, diarrhea, dysuria, earache, fever, headache, nasal discharge, seizure, shortness of breath, sore throat, vomiting, wheezing. Patient is a 29-year-old male coming into the ER for left lower back pain radiating down the left leg. Patient reports this been going on for 2 weeks. Patient denies fall, trauma, numbness / tingling to bilateral legs, perirectal numbness, or fever.. Historical: - Allergies: 19:44 No Known Allergies; jb4 - PMHx: 19:44 intussusception; jb4 - PSHx: 19:44 None; jb4 - Immunization history:: Adult Immunizations up to date. - Infectious Disease History:: Denies. - Social history:: Smoking status: Reported history of juuling and/or vaping. Patient uses alcohol, occasionally. ROS: 20:12 Constitutional: as per hpi dr5 Exam: 20:12 Constitutional: This is a well developed, well nourished patient who is awake, alert, dr5 and in no acute distress. Head/Face: Normocephalic, atraumatic. Eyes: Pupils equal round and reactive to light, extra-ocular motions intact. Lids and lashes normal. Conjunctiva and sclera are non-icteric and not injected. Cornea within normal limits. Periorbital areas with no swelling, redness, or edema. Neck: Trachea midline, no thyromegaly or masses palpated, and no cervical lymphadenopathy. Supple, full range of motion without nuchal rigidity, or vertebral point tenderness. No Meningismus. Chest/axilla: Normal chest wall appearance and motion. Nontender with no deformity. No lesions are appreciated. Cardiovascular: Regular rate and rhythm with a normal S1 and S2. Normal PMI, no JVD. No pulse deficits. Respiratory: Lungs have equal breath sounds bilaterally, clear to auscultation. No rales, rhonchi or wheezes noted. No increased work of breathing, no retractions or nasal flaring. Skin: Warm, dry with normal turgor. Normal color with no rashes, no lesions, and no evidence of cellulitis. MS/ Extremity: Pulses equal, no cyanosis. Neurovascular intact. Full, normal range of motion. Neuro: Awake and alert, GCS 15, oriented to person, place, time, and situation. Cranial nerves II-XII grossly intact. Motor strength 5/5 in all extremities. Sensory grossly intact. Cerebellar exam normal. Normal gait. 20:12 Back: ROM is normal, normal spinal alignment noted, muscle spasm, is not present, Straight leg raises: left lower extremity illicits pain, at 45 degrees, Vital Signs: 19:41 BP 148 / 93; Pulse 95; Resp 16; Pulse Ox 98% on R/A; Weight 108.86 kg (R); Height 5 ft. jb4 8 in. (R); Pain 7/10; 20:37 BP 145 / 90; Pulse 90; Resp 17; Temp 98; Pulse Ox 98% ; Pain 0/10; bm8 19:41 Body Mass Index 36.49 (108.86 kg, 172.72 cm) jb4 19:41 Pain Scale: Adult jb4 20:37 Pain Scale: Adult bm8 Fatemeh Coma Score: 20:37 Eye Response: spontaneous(4). Motor Response: obeys commands(6). Verbal Response: bm8 oriented(5). Total: 15. MDM: 19:40 Medical Screening Exam initiated dr5 21:16 Differential diagnosis: viral Infection, Sciatic Nerve Pain, Bulging Disc. Data dr5 reviewed: vital signs, nurses notes, radiologic studies, plain films. I considered the following discharge prescriptions or medication management in the emergency department Medications were administered in the Emergency Department. See MAR. Care significantly affected by the following Social Determinants of Health: Poor access to healthcare and/or lack of insurance, Poor access to transportation, Problems related to employment. Counseling: I had a detailed discussion with the patient and/or guardian regarding the historical points, exam findings, and any diagnostic results supporting the discharge/admit diagnosis, the presence of at least one elevated blood pressure reading (>120/80) during this emergency department visit, radiology results, the need for outpatient follow up, for definitive care, a family practitioner, to return to the emergency department if symptoms worsen or persist or if there are any questions or concerns that arise at home. Medication response: Dexamethasone and Ketorolac. Response to treatment: the patient's symptoms have markedly improved after treatment. ED course: Patient is feeling much better after Toradol and steroid injection. Will send patient home with steroid pack, cyclobenzaprine as needed, and gabapentin for nerve pain. Recommended patient follow-up with primary care doctor this week if pain is not getting better. I printed out x-ray results and put in with discharge for him to take to his doctor in case further imaging is needed. All questions answered. Recommended alternating Tylenol and ibuprofen as needed for pain. Patient discharged with steady gait.. 10/14 20:04 Order name: Lumbar Spine 3 Views; Complete Time: 20:28 EDMS Administered Medications: 20:02 Drug: Dexamethasone IM 10 mg IM once Route: IM; Site: left deltoid; jb4 20:37 Follow up: Response: No adverse reaction bm8 20:02 Drug: Ketorolac IM 30 mg IM once Route: IM; Site: right deltoid; jb4 20:37 Follow up: Response: No adverse reaction bm8 Disposition Summary: 10/14/24 20:29 Discharge Ordered Notes: Location: Home dr5 Condition: Stable dr5 Diagnosis - Sciatica, left side dr5 Followup: dr5 - With: Emergency Department - When: As needed - Reason: Worsening of condition Followup: dr5 - With: Private Physician - When: 1 - 2 days - Reason: Recheck today's complaints, Continuance of care, Re-evaluation by your physician Discharge Instructions: - Discharge Summary Sheet dr5 - Sciatica dr5 Forms: - Medication Reconciliation Form dr5 - Patient Portal Instructions dr5 - Leadership Thank You Letter dr5 Prescriptions: - gabapentin 300 mg Oral capsule - take 1 capsule ORAL route every 8 hours As needed; 30 capsule; Refills: 0, dr5 Product Selection Permitted - Cyclobenzaprine 10 mg Oral Tablet - take 1 tablet ORAL route every 8 hours As needed; 30 tablet; Refills: 0, dr5 Product Selection Permitted - Medrol (Jourdan) 4 mg Oral Tablets, Dose Pack - take 1 tablet ORAL route as directed - follow package instructions; 1 packet; dr5 Refills: 0, Product Selection Permitted Signatures: Dispatcher [employer] EDMS Mauro Schilling, RN RN jb4 Beto Dumont, CRM MARKETING EXECUTIVE-C CRM MARKETING EXECUTIVE-Cdr5 Gentry Mcleod RN bm8 Corrections: (The following items were deleted from the chart) 20:04 19:47 Lumbar Spine Single View+[email or web address] ordered. EDMS EDMS
== END 2024-10-14 20:41 | disposition home or self-care (01) ==
LOC: ER 19:34
DX: M54.32 Sciatica, left side (principal); F17.290 Nicotine dependence, other tobacco product, uncomplicated
CPT/HCPCS: 72100; 96372; 99284; J1100